=== PATIENT | female | born 1950 ===

== ENCOUNTER 2021-04-15 13:14 | Outpatient (REF) | payer OTHER, MEDICAID, SELFPAY ==
[2021-04-15 14:13] LABS: COVID-19 Test Negative (Negative)
== END 2021-04-15 13:15 | disposition home or self-care (01) ==
LOC: HO.LAB 13:14
PROVIDERS: Visit Provider Internal Medicine
DX: Z20.822 Contact with and (suspected) exposure to COVID-19 (principal)
CPT/HCPCS: 36415; 87635; C9803